=== PATIENT | female | born 1955 | race Caucasian/White ===

== ENCOUNTER → 2016-10-27 | Outpatient (CLI) | payer OTHER ==
[~2016-10-27] VITALS: Ht 167.6 cm; Wt 67.0 kg
[~2016-10-27] MED LIST: ALEVE220 M2 PO; ALPHA LIPOIC A100 MG PO; AMLODIPINE BESYL5 MG PO; ATENOLOL50 MG PO; AVENTYL,PAMELOR25 MG PO; B COMPLETE1 EACH PO; BENADRYL25 MG PO; BENAZEPRIL HCL40 MG PO; BUTORPHANO10 MG/1 ML NS; CALCIUM 500 MG1 EACH PO; CALCIUM 600 +1 EAC9 PO; CARAFATE1 GM PO; CRANBERRY500 M3 PO; CYCLOBENZAPRINE10 MG PO; ED-SPAZ0.125 MG PO; EXCEDRIN MIGRA1 EAC3 PO; HOMOCYSTEINE F1 EACH PO; HYDROCHLOROTHIA25 MG PO; L-CARNITINE500 MG PO; LACTAID9000 UNIT PO; LEVOTHROID,SYN0.1 MG PO; LIBRAX, CLI1 CAPSULE PO; LIOTHYRONINE S25 MCG PO; LOTENSIN40 MG PO; LYRICA75 MG PO; MELATONIN1 MG PO; METOCLOPRAMIDE H5 MG PO; MUCINEX1200 MG PO; NORTRIPTYLINE H50 MG PO; PHENERGAN12.5 M1 PO; PRAVACHOL20 MG PO; PRILOSEC20 MG PO; PROBIOTIC-10 370 MG PO; RANITIDINE HCL300 M1 PO; SAVELLA50 MG PO; SOMA350 MG PO; STADOL NASAL2.5 ML NS; STOOL SOFTENER100 MG PO; SUPER B-50 COM1 EAC1 PO; TRAMADOL HCL50 MG PO; TYLENOL EXTRA500 MG PO; VICODIN 5-5001 EACH PO; VITAMIN D2000 UNIT PO; ZOFRAN ODT4 MG PO; ZUPLENZ4 MG PO
[2016-10-27 09:46] VITALS: BP 132/82
== END | disposition home or self-care (01) ==
LOC: IVINF 09:21
DX: M81.0 Age-related osteoporosis without current pathological fracture (principal)
CPT/HCPCS: 96365; J3489